=== PATIENT | male | born 1945 ===

== ENCOUNTER → 2018-12-23 | Outpatient (CLI) | payer MEDICARE ==
[~2018-12-23] MED LIST: 24 HOUR ALLER15.8 ML; ASPI325EC PO; CHOL10002 PO; CYAN1000 PO; DILT120ERA PO; SIMV10 PO
== END | disposition home or self-care (01) ==
LOC: LAB EV 12:25 → LAB SHORT 12:25
DX: L02.212 Cutaneous abscess of back [any part, except buttock and flank] (principal)
CPT/HCPCS: 87070; 87075; 87205

== ENCOUNTER → 2019-01-17 | Outpatient (CLI) | payer MEDICARE | END | disposition home or self-care (01) | LOC: LAB EV 08:31 → LAB SHORT 08:31 | DX: L72.3 Sebaceous cyst (principal) | CPT/HCPCS: 87070; 87205 ==

== ENCOUNTER → 2019-03-16 | Outpatient (CLI) | payer MEDICARE | LOC: LAB SHORT 16:34 → LAB 16:34 | DX: L08.9 Local infection of the skin and subcutaneous tissue, unspecified (principal); L72.0 Epidermal cyst; L81.0 Postinflammatory hyperpigmentation; L81.4 Other melanin hyperpigmentation | CPT/HCPCS: 87070; 87205 ==

== ENCOUNTER → 2019-04-18 | Outpatient (CLI) | payer MEDICARE | LOC: LAB SHORT 15:22 → LAB 15:22 | DX: L08.9 Local infection of the skin and subcutaneous tissue, unspecified (principal); L72.0 Epidermal cyst | CPT/HCPCS: 87070; 87205 ==

== ENCOUNTER → 2019-06-03 | Outpatient (CLI) | payer MEDICARE | END | disposition home or self-care (01) | LOC: LAB SHORT 14:11 → LAB EV 14:11 | DX: R82.79 Other abnormal findings on microbiological examination of urine (principal) | CPT/HCPCS: 87086 ==

== ENCOUNTER → 2019-11-14 | Outpatient (CLI) | payer MEDICARE | LOC: LAB SHORT 17:22 → LAB 17:22 | DX: L08.9 Local infection of the skin and subcutaneous tissue, unspecified (principal); L72.0 Epidermal cyst | CPT/HCPCS: 87070; 87077; 87147; 87186; 87205 ==

== ENCOUNTER → 2019-11-28 | Outpatient (CLI) | payer MEDICARE | LOC: LAB 17:46 → LAB SHORT 17:46 | DX: L08.9 Local infection of the skin and subcutaneous tissue, unspecified (principal); L72.0 Epidermal cyst; A49.02 Methicillin resistant Staphylococcus aureus infection, unspecified site; D48.5 Neoplasm of uncertain behavior of skin | CPT/HCPCS: 87070; 87205 ==